=== PATIENT | male | born 1970 | race Caucasian/White ===

== ENCOUNTER 2017-11-20 22:26 | Inpatient (IN) ==
--- NOTE | 2017-11-20 22:41 | Emergency Department Note ---
Disposition Clinical Impression: Acute dyspnea, Elevated d-dimer Atrial flutter Qualifiers: Atrial flutter type: unspecified Qualified Code(s): I48.92 - Unspecified atrial flutter Anemia Qualifiers: Anemia type: unspecified type Qualified Code(s): D64.9 - Anemia, unspecified Disposition: Admitted As Inpatient Condition: Undetermined Time of Disposition: 00:57 SOB HPI - General Chief Complaint: ED Shortness of Breath/Dyspnea Stated Complaint: difficulty breathing Time Seen by Provider: 11/20/17 22:37 Source: patient, EMS Mode of arrival: EMS Limitations: no limitations Nursing Notes Reviewed: Yes Vital Signs Reviewed: Yes - History of Present Illness 47-year-old male with no previous medical history arrives to the emergency department with complaint of dyspnea. He also complaining of bilateral lower extremity and abdominal swelling over the course of the past 2 weeks. He states that the shortness of breath started prior to the swelling. He denies any chest pain, abdominal pain, fevers, chills, sputum production. Denies any other complaints at this time. Upon arrival to his house, EMS noted the patient to be 96% on room air was administered DuoNeb. EMS stated that he was 96% on 3 L nasal cannula. He denies any other complaints at this time. He is not tachypneic. He denies any other complaints at this time including hemoptysis, unilateral leg swelling, history of DVT or PE, recent surgeries. The patient is fairly immobile at home. - Related Data Allergies Allergy/AdvReac Type Severity Reaction Status Date / Time grape Allergy Hives Verified 11/20/17 22:34 All systems ED: reviewed and negative except as stated. Constitutional: Denies: fever, chills ENT ED: Denies: congestion Cardiovascular: Denies: chest pain Respiratory: Reports: cough, dyspnea. Denies: wheezes, sputum production Gastrointestinal: Denies: abdominal pain, nausea, vomiting, diarrhea, constipation Musculoskeletal: Denies: back pain Integumentary: Denies: rash Neurological: Denies: headache Past Medical History - Past Medical History Attestation: Yes The following information was validated with the patient. Source: patient Medical history: Reports: no medical history Surgical history: Reports: non-contributory Psychiatric history: Reports: no psych history - Social History Smoking Status: Never smoker Smokeless Tobacco Status: No Alcohol use: Reports: none Drug use: Reports: none Physical Exam - General Limitations: no limitations General appearance: alert, in no apparent distress - Head Head exam: atraumatic, normocephalic, normal inspection - Eye Eye exam: Present: normal appearance, PERRL, EOMI - ENT ENT exam: normal exam, normal oropharynx, mucous membranes moist - Neck Neck exam: Present: normal inspection, full ROM, trachea midline - Chest Chest inspection: Present: normal inspection, symmetric chest wall rise - Respiratory Respiratory exam: Present: normal lung sounds bilaterally - Cardiovascular Cardiovascular exam: Present: normal rhythm, tachycardia, normal heart sounds - Abdominal Exam Abdominal exam: Present: soft, Non-Tender, distention, other (Large pannus, No erythema or pain on palpation.). Absent: tenderness, guarding, rebound, rigidity - Male exam: Absent: erythema - Extremities Exam Extremities exam: Present: full ROM, pedal edema (2+ pitting). Absent: tenderness - Neurological Exam Neurological exam: Present: alert, oriented X3 - Skin Skin exam: Present: warm, dry, intact, normal color Course - Reevaluation(s) Reevaluation #1: Workup in the emergency department demonstrates findings consistent with CHF. In addition the patient does have an elevated d-dimer but given the patient's large size, we are unable to accommodate the patient for a CT scan here in our emergency department. [facility] contacted [facility] well as [facility] who are also unable to accompany the patient's size for a CT scan. We will administer 1 dose of Lovenox here in the emergency department. The patient will be converted with Adenocard as his EKG looks consistent with SVT. The patient was made aware and agrees to plan. He gives a verbal understanding and agreement for cardioversion here in the emergency department. The patient will be placed on a monitor with attending physician and nursing staff in the room. Time: 23:59 Reevaluation #2: Patient was administered initially a dose of 6 mg of Adenocard which was unsuccessful. The patient was administered a second dose of 12 mg of at dinner car which did slow the heart rate for a brief second which revealed atrial flutter. The patient was started on a Cardizem drip. The patient was also administered a 200 unit dose of Lovenox. We will admit the patient to the hospital at this time. Time: 00:44 Vital Signs Temperature 98.1 F 11/20/17 22:34 Pulse Rate 154 11/20/17 22:34 Respiratory Rate 22 11/20/17 22:34 Blood Pressure 112/73 11/20/17 22:34 O2 Sat by Pulse Oximetry 96 11/20/17 22:34 Temperature 98.1 F 11/20/17 22:34 Pulse Rate 153 11/20/17 23:35 Respiratory Rate 22 11/20/17 23:35 Blood Pressure 140/110 11/20/17 23:35 O2 Sat by Pulse Oximetry 96 11/20/17 23:35 Oxygen Delivery Oxygen Delivery Room Air Shortness of Breath/Dyspnea - MDM Narrative Medical decision making narrative: Workup in the emergency Department imaging findings consistent with mild CHF, mild troponin. In addition the patient was found to be in atrial flutter after the patient's heart rate was slowed slightly after Adenocard. We will admit the patient to the hospital at this time. He was also administered Lovenox as the patient is unable to receive a CTA of the chest here, at [place] or [facility]. The patient was accepted by Dr. Samayoa. - Lab Data Lab results reviewed: Yes I reviewed the patient's lab results. Result diagrams: 11/20/17 22:57 11/20/17 22:57 Lab Results 11/20/17 11/20/17 11/20/17 Range/Units 22:57 22:57 22:57 WBC 11.0 (4.3-11.1) K/mcL RBC 4.56 (4.19-5.50) M/mcL Hgb 8.6 L (12.9-16.9) g/dL Hct 31.6 L (37.5-50.1) % MCV 69.3 L (83.0-100.0) fL MCH 18.9 L (28.0-33.3) pg MCHC 27.2 L (31.6-35.5) g/dL RDW 20.4 H (11.5-14.5) % Plt Count 337 (140-400) K/mcL MPV 9.3 L (9.4-12.4) fL Immature Gran % 0.8 (0-4) % Seg Neutrophils % 74.9 % Lymphocytes % 11.4 % Monocytes % 9.1 % Eosinophils % 3.4 % Basophils % 0.4 % Neutrophils # 8.2 (1.6-8.9) K/mcL Lymphocytes # 1.3 (0.6-4.6) K/mcL Monocytes # 1.0 (0.0-1.3) K/mcL Eosinophils # 0.4 (0.0-0.6) K/mcL Basophils # 0.0 (0.0-0.2) K/mcL Nucleated RBCs/100 WBC 0.5 H (0) /100 WBC Platelet Estimate Normal (Normal) Hypochromasia Present A (Not Present) Anisocytosis 1+ A (Not Present) Microcytosis Present A (Not Present) D-Dimer 1153 H (0-500) ng/mLFEU Sodium 136 (136-145) mEq/L Potassium 3.5 (3.5-5.1) mEq/L Chloride 103 (98-107) mEq/L Carbon Dioxide 26 (23-29) mEq/L BUN 12 (6-20) mg/dL Creatinine 0.88 (0.70-1.30) mg/dL Est GFR ( Amer) > 60 (> 60) Est GFR (Non-Af Amer) > 60 (> 60) BUN/Creatinine Ratio 14 (6-26) Glucose 130 H (70-105) mg/dL Calculated Osmolality 284 (280-300) Calcium 8.3 L (8.6-10.3) mg/dL Troponin I 0.05 H* (< 0.04) ng/mL B-Natriuretic Peptide (Less than 100) pg/mL 11/20/17 Range/Units 22:57 WBC (4.3-11.1) K/mcL RBC (4.19-5.50) M/mcL Hgb (12.9-16.9) g/dL Hct (37.5-50.1) % MCV (83.0-100.0) fL MCH (28.0-33.3) pg MCHC (31.6-35.5) g/dL RDW (11.5-14.5) % Plt Count (140-400) K/mcL MPV (9.4-12.4) fL Immature Gran % (0-4) % Seg Neutrophils % % Lymphocytes % % Monocytes % % Eosinophils % % Basophils % % Neutrophils # (1.6-8.9) K/mcL Lymphocytes # (0.6-4.6) K/mcL Monocytes # (0.0-1.3) K/mcL Eosinophils # (0.0-0.6) K/mcL Basophils # (0.0-0.2) K/mcL Nucleated RBCs/100 WBC (0) /100 WBC Platelet Estimate (Normal) Hypochromasia (Not Present) Anisocytosis (Not Present) Microcytosis (Not Present) D-Dimer (0-500) ng/mLFEU Sodium (136-145) mEq/L Potassium (3.5-5.1) mEq/L Chloride (98-107) mEq/L Carbon Dioxide (23-29) mEq/L BUN (6-20) mg/dL Creatinine (0.70-1.30) mg/dL Est GFR ( Amer) (> 60) Est GFR (Non-Af Amer) (> 60) BUN/Creatinine Ratio (6-26) Glucose (70-105) mg/dL Calculated Osmolality (280-300) Calcium (8.6-10.3) mg/dL Troponin I (< 0.04) ng/mL B-Natriuretic Peptide 168 H (Less than 100) pg/mL - Radiology Data Radiology results reviewed: Yes I reviewed the patient's radiology results. Chest X-Ray 11/20/17 22:38 IMPRESSION: Constellation of findings is most suggestive of CHF. D/ / Hanna Chavis MD / Hanna Chavis MD Interpreting Provider: Hanna Chavis MD - EKG Data EKG attestation: Yes I reviewed and interpreted this EKG. EKG results narrative: Heart rate 154 beats for minute. Sinus tachycardia. No ST elevation or ST depression noted. There are with P waves present but difficult to assess completely due to rate.
[2017-11-20 23:07] LABS: Mean Corpuscular Volume 69.3 fL (83.0-100.0); Nucleated Red Blood Cells 0.5 /100 WBC (0)
[2017-11-20 23:09] LABS: Basophils % 0.4 %; Eosinophils # 0.4 K/mcL (0.0-0.6); Eosinophils % 3.4 %; Hematocrit 31.6 % (37.5-50.1); Hemoglobin 8.6 g/dL (12.9-16.9); Immature Granulocytes % 0.8 % (0-4); Lymphocytes # 1.3 K/mcL (0.6-4.6); Lymphocytes % 11.4 %; Mean Corpuscular HGB Conc 27.2 g/dL (31.6-35.5); Mean Corpuscular Hemoglobin 18.9 pg (28.0-33.3); Mean Platelet Volume 9.3 fL (9.4-12.4); Monocytes % 9.1 %; Neutrophils # 8.2 K/mcL (1.6-8.9); Platelet Count 337 K/mcL (140-400); Red Blood Count 4.56 M/mcL (4.19-5.50); Red Cell Distribution Width 20.4 % (11.5-14.5); Segmented Neutrophils % 74.9 %
[2017-11-20 23:23] LABS: Anisocytosis 1+ (Not Present); Hypochromasia Present (Not Present); Microcytosis Present (Not Present); Platelet Estimate Normal (Normal)
[2017-11-20 23:28] LABS: BUN/Creatinine Ratio 14 (6-26); Blood Urea Nitrogen 12 mg/dL (6-20); Calcium 8.3 mg/dL (8.6-10.3); Carbon Dioxide 26 mEq/L (23-29); Chloride 103 mEq/L (98-107); Glucose 130 mg/dL (70-105); Osmolality,Calculated 284 (280-300); Potassium 3.5 mEq/L (3.5-5.1); Sodium 136 mEq/L (136-145); eGFR For African Americans > 60 (> 60); eGFR For Non-African Americans > 60 (> 60)
[2017-11-20 23:32] LABS: Troponin I 0.05 ng/mL (< 0.04)
[2017-11-20] MEDS ORDERED: *HR* Metoprolol 5 MG/5 ML VIAL IVP ONE (23:46)
[2017-11-20] MEDS ORDERED: *HR* Adenosine 6 MG/2 ML VIAL IVP ONE (23:57)
[2017-11-21] MEDS ORDERED: 0.9 % Sodium Chloride 500 ML ONE (00:04)
[2017-11-21] MEDS ORDERED: *HR* Adenosine 6 MG/2 ML VIAL IVP ONE (00:40)
[2017-11-21] MEDS ORDERED: *HR* Enoxaparin 100 MG/ML SYRINGE SQ STA (00:41)
--- NOTE | 2017-11-21 01:47 | Emergency Department Note ---
Disposition Clinical Impression: Acute dyspnea, Elevated d-dimer Atrial flutter Qualifiers: Atrial flutter type: unspecified Qualified Code(s): I48.92 - Unspecified atrial flutter Disposition: Admitted As Inpatient Condition: Undetermined General Adult HPI - General Chief complaint: ED Shortness of Breath/Dyspnea Stated complaint: difficulty breathing Time Seen by Provider: 11/20/17 22:37 Source: patient, EMS Mode of arrival: EMS Limitations: no limitations Nursing Notes Reviewed: Yes Vital Signs Reviewed: Yes - History of Present Illness Pain Scale: 0 - Related Data Allergies Allergy/AdvReac Type Severity Reaction Status Date / Time grape Allergy Hives Verified 11/20/17 22:34 Constitutional: Denies: fever, chills ENT ED: Denies: congestion Cardiovascular: Denies: chest pain Respiratory: Reports: cough, dyspnea. Denies: wheezes, sputum production Gastrointestinal: Denies: abdominal pain, nausea, vomiting, diarrhea, constipation Musculoskeletal: Denies: back pain Integumentary: Denies: rash Neurological: Denies: headache Past Medical History - Past Medical History Medical history: Reports: no medical history Surgical history: Reports: non-contributory Psychiatric history: Reports: no psych history - Social History Smoking Status: Never smoker Smokeless Tobacco Status: No Alcohol use: Reports: none Drug use: Reports: none Physical Exam - General Limitations: no limitations General appearance: alert, in no apparent distress Course Vital Signs Temperature 98.1 F 11/20/17 22:34 Pulse Rate 154 11/20/17 22:34 Respiratory Rate 22 11/20/17 22:34 Blood Pressure 112/73 11/20/17 22:34 O2 Sat by Pulse Oximetry 96 11/20/17 22:34 Temperature 98.1 F 11/20/17 22:34 Pulse Rate 153 11/20/17 23:35 Respiratory Rate 22 11/20/17 23:35 Blood Pressure 140/110 11/20/17 23:35 O2 Sat by Pulse Oximetry 96 11/20/17 23:35 Oxygen Delivery Oxygen Delivery Room Air Medical Decision Making - Lab Data Result diagrams: 11/20/17 22:57 11/20/17 22:57 Lab Results 11/20/17 11/20/17 11/20/17 Range/Units 22:57 22:57 22:57 WBC 11.0 (4.3-11.1) K/mcL RBC 4.56 (4.19-5.50) M/mcL Hgb 8.6 L (12.9-16.9) g/dL Hct 31.6 L (37.5-50.1) % MCV 69.3 L (83.0-100.0) fL MCH 18.9 L (28.0-33.3) pg MCHC 27.2 L (31.6-35.5) g/dL RDW 20.4 H (11.5-14.5) % Plt Count 337 (140-400) K/mcL MPV 9.3 L (9.4-12.4) fL Immature Gran % 0.8 (0-4) % Seg Neutrophils % 74.9 % Lymphocytes % 11.4 % Monocytes % 9.1 % Eosinophils % 3.4 % Basophils % 0.4 % Neutrophils # 8.2 (1.6-8.9) K/mcL Lymphocytes # 1.3 (0.6-4.6) K/mcL Monocytes # 1.0 (0.0-1.3) K/mcL Eosinophils # 0.4 (0.0-0.6) K/mcL Basophils # 0.0 (0.0-0.2) K/mcL Nucleated RBCs/100 WBC 0.5 H (0) /100 WBC Platelet Estimate Normal (Normal) Hypochromasia Present A (Not Present) Anisocytosis 1+ A (Not Present) Microcytosis Present A (Not Present) D-Dimer 1153 H (0-500) ng/mLFEU Sodium 136 (136-145) mEq/L Potassium 3.5 (3.5-5.1) mEq/L Chloride 103 (98-107) mEq/L Carbon Dioxide 26 (23-29) mEq/L BUN 12 (6-20) mg/dL Creatinine 0.88 (0.70-1.30) mg/dL Est GFR ( Amer) > 60 (> 60) Est GFR (Non-Af Amer) > 60 (> 60) BUN/Creatinine Ratio 14 (6-26) Glucose 130 H (70-105) mg/dL Calculated Osmolality 284 (280-300) Calcium 8.3 L (8.6-10.3) mg/dL Troponin I 0.05 H* (< 0.04) ng/mL B-Natriuretic Peptide (Less than 100) pg/mL 11/20/17 Range/Units 22:57 WBC (4.3-11.1) K/mcL RBC (4.19-5.50) M/mcL Hgb (12.9-16.9) g/dL Hct (37.5-50.1) % MCV (83.0-100.0) fL MCH (28.0-33.3) pg MCHC (31.6-35.5) g/dL RDW (11.5-14.5) % Plt Count (140-400) K/mcL MPV (9.4-12.4) fL Immature Gran % (0-4) % Seg Neutrophils % % Lymphocytes % % Monocytes % % Eosinophils % % Basophils % % Neutrophils # (1.6-8.9) K/mcL Lymphocytes # (0.6-4.6) K/mcL Monocytes # (0.0-1.3) K/mcL Eosinophils # (0.0-0.6) K/mcL Basophils # (0.0-0.2) K/mcL Nucleated RBCs/100 WBC (0) /100 WBC Platelet Estimate (Normal) Hypochromasia (Not Present) Anisocytosis (Not Present) Microcytosis (Not Present) D-Dimer (0-500) ng/mLFEU Sodium (136-145) mEq/L Potassium (3.5-5.1) mEq/L Chloride (98-107) mEq/L Carbon Dioxide (23-29) mEq/L BUN (6-20) mg/dL Creatinine (0.70-1.30) mg/dL Est GFR ( Amer) (> 60) Est GFR (Non-Af Amer) (> 60) BUN/Creatinine Ratio (6-26) Glucose (70-105) mg/dL Calculated Osmolality (280-300) Calcium (8.6-10.3) mg/dL Troponin I (< 0.04) ng/mL B-Natriuretic Peptide 168 H (Less than 100) pg/mL Critical Care Time Critical Care Time: Yes Total Critical Care Time: 45 Attestation: Critical care performed: Time is exclusive of separately billable procedures. Time includes: direct patient care, patient reassessment, coordination of patient care, interpretation of data (laboratory data, radiology data, and respiratory data), review of patient's medical records, medical consultation and documentation of patient care. Procedures included in critical care time: Procedures excluded from critical care time: Attestation Statement - Attestation Attestation: I, Anoop Butler MD, personally evaluated this patient and discussed their management with the resident physician. I reviewed the resident's note and agree with the documented findings, medical decision making, and plan of care. 47-year-old male presents to the emergency department by ambulance with a complaint of increasing shortness of breath over the past 4-5 weeks but especially over the past 2 weeks. Also complains of increased swelling. No cough or fever. Patient is not on home oxygen and denies any prior history of breathing problems. Patient does have morbid obesity and weighs 580 pounds. He denies any chest pain. No cough or fever. No prior history of CHF. On examination patient is a morbidly obese male in no acute distress. He is alert and oriented 3. There is no cyanosis or diaphoresis. Breath sounds are equal bilaterally with no rales or wheezes noted. Heart is tachycardic and regular. Abdomen is soft and nontender with present bowel sounds. One plus Pitting edema of lower extremities bilaterally. EKG shows a narrow complex tachycardia with a ventricular rate of 154. Low voltage QRS in precordial leads. Chest x-ray suggestive of CHF. Labs reviewed. Hemoglobin 8.6. D-dimer elevated at 1153. Troponin 0.05. BNP 168. Patient received IV adenosine 6 mg followed by 12 mg. With the 12 mg dose there was brief slowing of a few beats which revealed what appeared to be atrial flutter. Patient was then given a Cardizem bolus and started on Cardizem infusion. Patient was also given Lovenox injection as his body habitus is too large to obtain a CTA of his lungs. We did consult [facility] and also [facility] in [place] and he is also too large for their scanner's. At this point the best course would be to him with Lovenox and obtain a VQ scan as soon as possible. The hospitalist, Dr. Samayoa, was consulted and accepted admission of the patient.
[2017-11-21] MEDS ORDERED: Naloxone 0.4 MG/ML INJ IVP PRN (02:37)
[2017-11-21] MEDS ORDERED: Acetaminophen 325 MG TABLET PO PRN (02:37)
[2017-11-21] MEDS ORDERED: 0.9 % Sodium Chloride 1,000 ML IVC SCH (02:45)
--- NOTE | 2017-11-21 02:52 | Internal Med History&Physical ---
Date of Encounter: 11/21/17 Time of Encounter: 02:00 Internal Medicine - H&P: HPI Chief complaint: Shortness of breath Admitted From: Home Plans for Post Hospital Care: Home History of present illness: Mr. Cornelius is a 47 year old male presented to ER for shortness of breath for 5 weeks. Patient has no significant past medical history, except morbid obese. Patient said he feels shortness of breath since 5 weeks ago. No chest pain. Patient has no fever. He has a mild dry cough. Patient denies nausea, diaphoresis. Patient denies a recent travel, immobilization, or surgery. In the emergency room, chest x-ray shows suggestive CHF. EKG shows A flutter with a heart rate 153. Patient was given metoprolol, Cardizem, adenosine iv in ER. Heart rate cannot be controlled by these medications. Patient was placed on Cardizem drip and admitted for further management. Past Med Surg Social Fam HX - Past Medical History Medical history: no medical history Psychiatric history: no psych history - Past Surgical History Surgical History: non-contributory - Social History Smoking Status: Never smoker Smokeless Tobacco Status: No Alcohol use: none Drug use: none - Family History Mother History Unknown: Yes Internal Medicine - H&P: Meds No Known Home Drugs 11/21/17 [History] 3 Allergy/AdvReac Type Severity Reaction Status Date / Time grape Allergy Hives Verified 11/20/17 22:34 All Systems PM: A 10-system review of systems was performed and is negative for pertinent findings except as documented above in the HPI. - Constitutional Vitals: Temp Pulse Resp BP Pulse Ox 98.1 F 153 22 166/94 96 11/20/17 22:34 11/20/17 23:35 11/21/17 02:05 11/21/17 02:05 11/20/17 23:35 General appearance: Present: mild distress, A&O X 3, morbidly obese, answers questions appropriately - Head Head exam: Present: atraumatic, normocephalic - Eye Eye exam: Present: PERRL, conjuntiva pink, sclera anicteric Pupils: Present: PERRL - Neck Neck exam general surgery: Present: supple, trachea midline. Absent: lymphadenopathy - Respiratory Respiratory exam: Present: CTAB. Absent: accessory muscle use, rales, rhonchi, wheezes - Cardiovascular Cardiovascular exam: Present: RRR, +S1, +S2, tachycardia. Absent: diastolic murmur, gallop, rubs, systolic murmur - GI/Abdominal GI/Abdominal exam: Present: normal bowel sounds, soft, no peritoneal signs. Absent: distended, tenderness - Extremities Exam Extremities exam: Present: pedal edema (Mild pedal edema bilaterally), warm, radial pulses palpable and symmetrical. Absent: calf tenderness, cyanotic - Neurological Exam Neurological exam: Present: CN II-XII intact, oriented X3, no focal deficits. Absent: pronater drift, facial droop, speech deficit - Skin Skin exam: Present: dry, intact Internal Med - H&P Results - Labs CBC & Chem 7: 11/20/17 22:57 11/20/17 22:57 - Assessment and plan (1) Elevated troponin Current Visit: Yes Status: Acute Assessment and plan: Patient has a mild elevated troponin on the condition of heart rate 153. Most likely demand ischemia. However, we will check 3 sets of troponin to rule out ACS. (2) CHF (congestive heart failure) Current Visit: Yes Status: Acute Assessment and plan: Chest x-ray shows suggestive CHF. Patient has mild elevated BNP, however, he is morbid obese, the BNP level is possibly falsely low. - We will check Echocardiogram in AM - Consult cardiology for further management. Qualifiers: Heart failure type: unspecified Heart failure chronicity: unspecified Qualified Code(s): I50.9 - Heart failure, unspecified (3) DVT prophylaxis Current Visit: Yes Status: Acute Assessment and plan: Patient has received 200mg Lovenox at 1:16am on 11/21/17. He may need long-term anticoagulation because of A flutter, will follow cardiology further recommendation. (4) Atrial flutter Current Visit: Yes Status: Acute Assessment and plan: Patient complaint of shortness of breath. EKG shows atrial flutter with heart rate 153. Patient has symptoms for 5 weeks. No history of previous atrial flutter or A. fib. - Continue cardiac monitoring - Continue Cardizem drip. - Lovenox 200mg sc was given in emergency room at 1:16am - Consul cardiology for further management. Qualifiers: Atrial flutter type: unspecified Qualified Code(s): I48.92 - Unspecified atrial flutter (5) Elevated d-dimer Current Visit: Yes Status: Acute Assessment and plan: Patient has elevated d-dimer. He denies chest pain. He has no desaturation. Patient cannot fit the CT for CTA. - We will check bilateral venous Doppler to rule out DVT - Place order of VQ scan, but suspect if patient can finish the test. - We will order echocardiogram to rule out right ventricular strain - Patient was given 1 dose of 200mg Lovenox already in ER (6) Anemia Current Visit: Yes Status: Acute Assessment and plan: Etiology is undetermined. Patient has no previous hemoglobin level available to compare. Place patient on anemia workup. Qualifiers: Anemia type: unspecified type Qualified Code(s): D64.9 - Anemia, unspecified (7) Morbid obesity with BMI of 70 and over, adult Current Visit: Yes Status: Acute Assessment and plan: Patient needs to be referred to bariatric surgery for BW loss, after stabilized from A. flutter RVR. - Time Spent With Patient Total time spent is greater than 50% in coordination of care (as documented) at patient's floor/unit and/or counseling patient: 40 minutes Greater than 35 minutes
[2017-11-21 04:28] LABS: Mean Platelet Volume 9.1 fL (9.4-12.4)
[2017-11-21 04:30] LABS: Basophils # 0.1 K/mcL (0.0-0.2); Basophils % 0.6 %; Eosinophils # 0.3 K/mcL (0.0-0.6); Eosinophils % 2.2 %; Hematocrit 32.2 % (37.5-50.1); Hemoglobin 8.8 g/dL (12.9-16.9); Immature Granulocytes % 0.7 % (0-4); Lymphocytes # 1.5 K/mcL (0.6-4.6); Lymphocytes % 12.2 %; Mean Corpuscular HGB Conc 27.3 g/dL (31.6-35.5); Mean Corpuscular Hemoglobin 18.8 pg (28.0-33.3); Mean Corpuscular Volume 68.8 fL (83.0-100.0); Monocytes % 8.7 %; Neutrophils # 9.1 K/mcL (1.6-8.9); Nucleated Red Blood Cells 0.5 /100 WBC (0); Platelet Count 343 K/mcL (140-400); Red Blood Count 4.68 M/mcL (4.19-5.50); Red Cell Distribution Width 20.6 % (11.5-14.5); Segmented Neutrophils % 75.6 %
[2017-11-21 04:47] LABS: Hypochromasia Present (Not Present); Microcytosis Present (Not Present); Platelet Estimate Normal (Normal)
[2017-11-21 04:48] LABS: Anisocytosis 1+ (Not Present); Polychromasia 1+ (Not Present)
[2017-11-21 04:53] LABS: % Iron Saturation 4 % (20-55); Ferritin 18 ng/ml (20-250); Iron 18 mcg/dL (65-175); Transferrin 320 mg/dL (203-362)
[2017-11-21 04:55] LABS: Alanine Aminotransferase 17 Units/L (7-52); Albumin 3.4 g/dL (3.5-5.7); Albumin/Globulin Ratio 1.2 (1.1-2.2); Alkaline Phosphatase 111 Units/L (34-104); Aspartate Amino Transferase 21 Units/L (13-39); BUN/Creatinine Ratio 15 (6-26); Bilirubin,Total 0.9 mg/dL (0.3-1.0); Blood Urea Nitrogen 12 mg/dL (6-20); Calcium 8.4 mg/dL (8.6-10.3); Carbon Dioxide 24 mEq/L (23-29); Chloride 104 mEq/L (98-107); Chol/HDL Ratio 3.6 (0-4.9); Cholesterol 105 mg/dL (< 200); Globulin 2.9 g/dL (2.4-3.5); Glucose 122 mg/dL (70-105); HDL Cholesterol 29 mg/dL (40-59); LDL Cholesterol,Calculated 64 mg/dL (0-99); Magnesium 1.8 mg/dL (1.6-2.6); Osmolality,Calculated 283 (280-300); Potassium 3.5 mEq/L (3.5-5.1); Sodium 136 mEq/L (136-145); Total Protein 6.3 g/dL (6.4-8.9); Triglycerides 61 mg/dL (< 150); eGFR For African Americans > 60 (> 60); eGFR For Non-African Americans > 60 (> 60)
[2017-11-21 05:03] LABS: Troponin I 0.04 ng/mL (< 0.04)
[2017-11-21 05:06] LABS: Thyroid Stimulating Hormone 0.968 mcIU/mL (0.340-5.600)
[2017-11-21 05:14] LABS: Folate 14.1 ng/mL (3.0-16.0)
--- NOTE | 2017-11-21 08:09 | Internal Med Progress Note ---
<David Lam - Last Filed: 11/21/17 08:01> Date of Encounter: 11/21/17 Time of Encounter: 08:01 - Assessment and plan (1) CHF (congestive heart failure) Current Visit: Yes Status: Suspected Assessment and plan: Morbidly obese patient with poor medical inventory admitted after 5 weeks of progressive shortness of air and lower extremity edema. CXR done in ED demonstrates cardiomegaly, vascular congestion, and pulmonary edema suggestive of CHF. No known history of CHF. BNP modestly elevated. ED was unable to check CTA for pulmonary embolus as patient is of a habitus preclusive to use of our scanner; ED did contact [facility] who have similar limitation toward scanning patient. Associated shortness of breath maybe multifactorial to include OIH as well as aforementioned. Concurrent diagnoses include morbid obesity, acute atrial flutter with RVR, and suspected PE (unable to CTA due to habitus) - Cardiology consulted and called by night hospitalist - serial troponins mildly elevated and adynamic thus far - lipid panel was unremarkable except for mildly low HDL - echocardiogram pending - B/L LE VD-U/S ordered and pending - Echocardiogram pending; no prior for comparison - patient given single-dose of Lovenox in the ED preferred for presumptive pulmonary embolus - fluid restriction diet; will start patient on Lasix and strictly monitor I/O - Alejandre catheter for strict monitoring of urinary output Due to concern of VTE, pt may need to be transferred to another facility with access to scanner that can accommodate him. Starting heparin gtt for suspected PE. Qualifiers: Heart failure type: unspecified Heart failure chronicity: unspecified Qualified Code(s): I50.9 - Heart failure, unspecified (2) Atrial flutter Current Visit: Yes Status: Acute Assessment and plan: Continues to be tachycardic into the 150s at rest with no obvious distress - continue cardiac monitoring - adjusted Cardizem titration orders to include goal pulse rate of 90 - awaiting any cardiology recommendations Qualifiers: Atrial flutter type: unspecified Qualified Code(s): I48.92 - Unspecified atrial flutter (3) Elevated d-dimer Current Visit: Yes Status: Acute Assessment and plan: Suspected PE, unable to evaluate at this facility; all plans as above. (4) Anemia Current Visit: Yes Status: Acute Assessment and plan: No medical records available for trending or comparison. No subjective signs of gastrointestinal bleeding. CBC QAM. Qualifiers: Anemia type: unspecified type Qualified Code(s): D64.9 - Anemia, unspecified (5) DVT prophylaxis Current Visit: Yes Status: Acute Assessment and plan: Patient received single-dose Lovenox will be started on heparin GTT. (6) Morbid obesity with BMI of 70 and over, adult Current Visit: Yes Status: Acute Assessment and plan: Patient needs to be referred to bariatric surgery for BW loss, after stabilized from [facility]. - Time Spent With Patient Total time spent is greater than 50% in coordination of care (as documented) at patient's floor/unit and/or counseling patient: - Subjective Interval history: Patient states feels okay this morning but becomes winded when he talks. Denies any chest pain. Has no sense of his heart racing. Discussed medical history with patient has no formerly diagnosed conditions. Does not routinely see any physicians for ongoing care. Takes no medications [id number]. Surgical history is equally unremarkable. No known drug allergies. - Constitutional Vitals: Temp Pulse Resp BP Pulse Ox 98.7 F 155 24 148/114 96 11/21/17 07:25 11/21/17 07:25 11/21/17 07:25 11/21/17 07:25 11/21/17 07:25 CONSTITUTIONAL: alert and no acute distress, answers questions appropriately, morbidly obese habitus HEAD: Normocephalic; atraumatic. EYES: PER, no scleral icterus, no drainage, no conjunctival injection NOSE: no supplementary oxygen being used at this time, no rhinorrhea Oropharynx: pink/moist RESP: speaks and interrupted sentences, lung sounds clear but diminished, unable to hear wheezes/rales/rhonchi CARD: difficult auscultation, unable to hear murmurs, rate and rhythm regular, tachycardic and to the 150s as palpated radial pulse ABD: morbid obesity limits exam, soft, nontender SKIN: normal appearance, no pallor/diaphoresis,mottling,jaundice,cyanosis EXT: Rad pulses 2+ and symmetrical; large LE habitus with 1-2+ pitting edema up to the mid-proximal carter PSYCH: appropriate mood/affect Internal Medicine: Result - Labs CBC & Chem 7: 11/21/17 04:14 11/21/17 04:14 Labs: Short CBC 11/21/17 Range/Units 04:14 WBC 12.0 H (4.3-11.1) K/mcL Hgb 8.8 L (12.9-16.9) g/dL Hct 32.2 L (37.5-50.1) % Plt Count 343 (140-400) K/mcL Neutrophils # 9.1 H (1.6-8.9) K/mcL BMP 11/21/17 04:14 Sodium 136 Potassium 3.5 Chloride 104 Carbon Dioxide 24 BUN 12 Creatinine 0.80 Glucose 122 H Calcium 8.4 L Cardiac Enzymes 11/21/17 Range/Units 04:14 Troponin I 0.04 H* (< 0.04) ng/mL Liver Function 11/21/17 Range/Units 04:14 Total Bilirubin 0.9 (0.3-1.0) mg/dL AST 21 (13-39) Units/L ALT 17 (7-52) Units/L Alkaline Phosphatase 111 H (34-104) Units/L Albumin 3.4 L (3.5-5.7) g/dL - ABG Interpretation ABG results: PT/INR, D-dimer D-Dimer 1153 ng/mLFEU (0-500) H 11/20/17 22:57 Consult Discharge Plan - Plan Referrals: NONE,PCP [Primary Care Provider] - <Betito Maloney H - Last Filed: 11/21/17 10:38> Date of Encounter: 11/21/17 - Assessment and plan (1) Atrial flutter Current Visit: Yes Status: Acute Qualifiers: Atrial flutter type: unspecified Qualified Code(s): I48.92 - Unspecified atrial flutter (2) Elevated d-dimer Current Visit: Yes Status: Acute (3) Anemia Current Visit: Yes Status: Acute Qualifiers: Anemia type: unspecified type Qualified Code(s): D64.9 - Anemia, unspecified (4) CHF (congestive heart failure) Current Visit: Yes Status: Suspected Qualifiers: Heart failure type: unspecified Heart failure chronicity: unspecified Qualified Code(s): I50.9 - Heart failure, unspecified (5) DVT prophylaxis Current Visit: Yes Status: Acute (6) Morbid obesity with BMI of 70 and over, adult Current Visit: Yes Status: Acute - Time Spent With Patient Total time spent is greater than 50% in coordination of care (as documented) at patient's floor/unit and/or counseling patient: - Constitutional Vitals: Temp Pulse Resp BP Pulse Ox 98.7 F 156 24 125/92 96 11/21/17 07:25 11/21/17 10:21 11/21/17 07:25 11/21/17 10:21 11/21/17 07:25 Internal Medicine: Result - Labs CBC & Chem 7: 11/21/17 09:44 11/21/17 04:14 Labs: Short CBC 11/21/17 11/21/17 Range/Units 04:14 09:44 WBC 12.0 H 11.9 H (4.3-11.1) K/mcL Hgb 8.8 L 9.2 L (12.9-16.9) g/dL Hct 32.2 L 33.5 L (37.5-50.1) % Plt Count 343 369 (140-400) K/mcL Neutrophils # 9.1 H (1.6-8.9) K/mcL BMP 11/21/17 04:14 Sodium 136 Potassium 3.5 Chloride 104 Carbon Dioxide 24 BUN 12 Creatinine 0.80 Glucose 122 H Calcium 8.4 L Cardiac Enzymes 11/21/17 11/21/17 Range/Units 04:14 09:44 Troponin I 0.04 H* 0.05 H* (< 0.04) ng/mL Liver Function 11/21/17 Range/Units 04:14 Total Bilirubin 0.9 (0.3-1.0) mg/dL AST 21 (13-39) Units/L ALT 17 (7-52) Units/L Alkaline Phosphatase 111 H (34-104) Units/L Albumin 3.4 L (3.5-5.7) g/dL - ABG Interpretation ABG results: PT/INR, D-dimer PT 14.4 Seconds (9.4-12.1) H 11/21/17 09:44 D-Dimer 1153 ng/mLFEU (0-500) H 11/20/17 22:57 - Attending Attestation Elevated D dimer (1153), possible PE start heparin drip acute CHF exacerbation systolic vs diastolic echo ordered lasix IV likely sinus tachycardia on cardizem drip, give additional cardizem IV and lopressor IV PRN Options explained to the patient, we won't be able to perform a CT scan here due to his BMI (96.6) He agreed to attempt to have him transferred either to [place] or [place] Anemia, possible iron deficiency, may order hemoccult, start omeprazole Morbid obesity I examined this patient and my medical decision-making was reviewed with the Resident Physician. I agree with the documented findings, disposition and treatment plan as described except to the extent set forth below. Betito Maloney
[2017-11-21] MEDS ORDERED: *HR* Heparin 5,000 UNIT/ML VIAL IVP ONE (08:37)
[2017-11-21] MEDS ORDERED: *HR* Heparin 5,000 UNIT/ML VIAL IVP PRN ×2 (08:37)
[2017-11-21 09:59] LABS: Hematocrit 33.5 % (37.5-50.1); Hemoglobin 9.2 g/dL (12.9-16.9); Immature Platelets 2.1 % (1.1-6.1); Mean Corpuscular HGB Conc 27.5 g/dL (31.6-35.5); Mean Corpuscular Hemoglobin 18.9 pg (28.0-33.3); Mean Corpuscular Volume 68.9 fL (83.0-100.0); Mean Platelet Volume 8.9 fL (9.4-12.4); Red Blood Count 4.86 M/mcL (4.19-5.50); Red Cell Distribution Width 20.3 % (11.5-14.5)
[2017-11-21 10:09] LABS: INR 1.3; Prothrombin Time 14.4 Seconds (9.4-12.1)
[2017-11-21 10:11] LABS: Activated Partial Thrombo Time 28.6 Seconds (26.0-36.0)
[2017-11-21] MEDS ORDERED: *HR* Metoprolol 5 MG/5 ML VIAL IVP SCH (10:30)
[2017-11-21 10:49] LABS: Estimated Average Glucose 186 mg/dl; Hemoglobin A1C 8.1 %
[2017-11-21] MEDS: Furosemide 40 MG/4 ML VIAL IVP SCH ×2 (11:24→20:58)
[2017-11-21] MEDS: Heparin 25,000 UNIT/500 ML D5W 25,000 UNIT/500 ML BAG IVC SCH ×2 (11:25→19:45)
--- NOTE | 2017-11-21 13:59 | Discharge Summary ---
<David Lam - Last Filed: 11/21/17 13:54> Orders not resulted at time of discharge: Pending orders 11/21/17 02:41 EV echocardiogram Routine 11/21/17 02:42 Venous Doppler [EV venous imaging LE BI] Routine 11/21/17 02:43 NM pul vent and perfuse [NM] Routine 11/21/17 10:36 Fecal Hemoccult [Occult Blood,Stool] [BF] Routine 11/21/17 17:25 PTT [Activated Partial Thrombo Time] [COAG] Timed Date of Encounter: 11/21/17 Time of Encounter: 08:01 - Discharge Diagnosis (1) CHF (congestive heart failure) Priority: Primary Status: Suspected Assessment and Plan: Morbidly obese patient with poor medical inventory admitted after 5 weeks of progressive shortness of air and lower extremity edema. CXR done in ED demonstrates cardiomegaly, vascular congestion, and pulmonary edema suggestive of CHF. No known history of CHF. BNP modestly elevated. ED was unable to check CTA for pulmonary embolus as patient is of a habitus preclusive to use of our scanner; ED did contact [facility] and [facility] who have similar limitation toward scanning patient. Associated shortness of breath maybe multifactorial to include OIH as well as aforementioned. Concurrent diagnoses include morbid obesity, acute atrial flutter with RVR, and suspected PE (unable to CTA due to habitus) - Cardiology consulted and called by night hospitalist - serial troponins mildly elevated and adynamic thus far - lipid panel was unremarkable except for mildly low HDL - echocardiogram pending - B/L LE VD-U/S ordered and pending - Echocardiogram pending; no prior for comparison - patient given single-dose of Lovenox in the ED preferred for presumptive pulmonary embolus - fluid restriction diet; will start patient on Lasix and strictly monitor I/O - Alejandre catheter for strict monitoring of urinary output Pending transfer to [facility] MICU per Dr. Ellison. Qualifiers: Heart failure type: unspecified Heart failure chronicity: unspecified Qualified Code(s): I50.9 - Heart failure, unspecified (2) Atrial flutter Priority: Primary Status: Suspected Assessment and Plan: Continues to be tachycardic into the 150s at rest with no obvious distress - EKG non-specific and unable to interpret adequately at his then present rate - repeat EKG when ryan-normal HR as able prior to transfer - all other plans as above Qualifiers: Atrial flutter type: unspecified Qualified Code(s): I48.92 - Unspecified atrial flutter (3) Elevated d-dimer Priority: Primary Status: Acute Assessment and Plan: Suspected PE, unable to evaluate at this facility; all plans as above. (4) Anemia Priority: Primary Status: Acute Assessment and Plan: No medical records available for trending or comparison. No subjective signs of gastrointestinal bleeding. CBC QAM. Qualifiers: Anemia type: unspecified type Qualified Code(s): D64.9 - Anemia, unspecified (5) Morbid obesity with BMI of 70 and over, adult Priority: Primary Status: Chronic Assessment and Plan: Patient needs to be referred to bariatric surgery for BW loss at some point. Hospital course: Mr. Cornelius is a 47 year old male with on elucidated medical history and BMI of 96.6 who is admitted by the emergency department for subacute shortness of breath and tachydysrhythmia. Admitted to medical floor with likely CHF, tachydysrhythmia, and possible pulmonary embolism. Patient does not have routine follow-up with any physicians and has no known medical conditions, no surgeries, and no medication allergies. HPI significant for 5 weeks of increasing shortness of breath and pedal edema. Found to be tachycardic in the ED with suspected atrial flutter. Emergency department attempted cardioversion with adenosine on 2 occasions which failed, and ultimately opted to placed patient on Cardizem drip. Chest x-ray performed in the ED demonstrated findings consistent with CHF exacerbation; had modestly elevated BNP at 168 and a dynamic troponin levels of 0.05, 0.04, and 0.05. Do tachycardia and shortness of breath, or some concern of PE, so D-dimer was run and found to be elevated. Unable to accommodate patient on our CT scanner, so patient was given initial dose of Lovenox in the emergency department and admitted to the medical floor. Started patient on heparin infusion for presumed pulmonary embolus. Despite Cardizem drip, patient's pulse rate persisted to be in the 150 range; did add additional push doses of Cardizem which have gotten patient's pulse rate down to the 100-130 range. Also started patient on 40 mg IV Lasix BID for volume overload. Cardiology was consulted on case, but is unable to make meaningful interpretation of clinical picture without further evaluation. Patient warrants transfer to a facility that is able to evaluate fully and accommodate is overall clinical picture, namely, CTA for PE given his habitus limitations. Other problems include newly diagnosed diabetes with an A1 C of 8.1%, anemia with hemoglobin of 8.6 g/dL on initial evaluation, and abnormal iron studies (see reports). Patient is accepted to the MICU at [facility] per Dr. Ellison who wishes to transport patient via air transport. Discharge discussed with: patient - Time Spent with Patient Total time spent providing and/or coordinating discharge services: - Discharge Medications Home Medications: No Known Home Drugs 11/21/17 [History] Allergies/Adverse Reactions: 3 Allergy/AdvReac Type Severity Reaction Status Date / Time grape Allergy Hives Verified 11/20/17 22:34 Date of admission: 11/21/17 02:37 Primary care physician: PCP NONE Consults: 11/21/17 02:44 Consult to Cardiology [CONS] Routine Comment: Consulting Provider: Cardiology Christel Reason for Consult: New A Flutter Call Completed: Yes 11/21/17 06:33 Consult to Disability Specialist [CONS] Routine Reason for SW Consult: Finacial concerns Discharging clinician: David Lam Anticipated date of discharge: 11/21/17 - Constitutional Vitals: Temp Pulse Resp BP Pulse Ox 98.9 F 130 20 132/89 97 11/21/17 11:25 11/21/17 11:25 11/21/17 11:25 11/21/17 11:25 11/21/17 11:25 CONSTITUTIONAL: alert and no acute distress, answers questions appropriately, morbidly obese habitus HEAD: Normocephalic; atraumatic. EYES: PER, no scleral icterus, no drainage, no conjunctival injection NOSE: no supplementary oxygen being used at this time, no rhinorrhea Oropharynx: pink/moist RESP: speaks and interrupted sentences, lung sounds clear but diminished, unable to hear wheezes/rales/rhonchi CARD: difficult auscultation, unable to hear murmurs, rate and rhythm regular, tachycardic and to the 150s as palpated radial pulse ABD: morbid obesity limits exam, soft, nontender SKIN: normal appearance, no pallor/diaphoresis,mottling,jaundice,cyanosis EXT: Rad pulses 2+ and symmetrical; large LE habitus with 1-2+ pitting edema up to the mid-proximal carter PSYCH: appropriate mood/affect - Patient Status Disposition: Transfer Short-Term Hosp Condition: Undetermined Functional capacity at discharge: bed bound Overall status at discharge: patient is not back to baseline - Discharge Instructions Follow Up With: NONE,PCP [Primary Care Provider] - Additional Instructions: Continue Cardizem and heparin infusions to transport. Continue all other PRN medications. Dose Lasix per prescription per interval if needed on transport. - Diet and Activity Diet: low salt diet <Betito Maloney H - Last Filed: 11/21/17 14:28> Orders not resulted at time of discharge: Pending orders 11/21/17 02:41 EV echocardiogram Routine 11/21/17 02:42 Venous Doppler [EV venous imaging LE BI] Routine 11/21/17 02:43 NM pul vent and perfuse [NM] Routine 11/21/17 10:36 Fecal Hemoccult [Occult Blood,Stool] [BF] Routine 11/21/17 17:25 PTT [Activated Partial Thrombo Time] [COAG] Timed Date of Encounter: 11/21/17 - Discharge Diagnosis (1) Atrial flutter Status: Suspected Qualifiers: Atrial flutter type: unspecified Qualified Code(s): I48.92 - Unspecified atrial flutter (2) Elevated d-dimer Status: Acute (3) Anemia Status: Acute Qualifiers: Anemia type: unspecified type Qualified Code(s): D64.9 - Anemia, unspecified (4) CHF (congestive heart failure) Status: Suspected Qualifiers: Heart failure type: unspecified Heart failure chronicity: unspecified Qualified Code(s): I50.9 - Heart failure, unspecified (5) Morbid obesity with BMI of 70 and over, adult Status: Chronic Hospital course: Mr. Cornelius is a 47 year old male - Time Spent with Patient Total time spent providing and/or coordinating discharge services: Date of admission: 11/21/17 02:37 Primary care physician: PCP NONE Consults: 11/21/17 02:44 Consult to Cardiology [CONS] Routine Comment: Consulting Provider: Cardiology Christel Reason for Consult: New A Flutter Call Completed: Yes 11/21/17 06:33 Consult to Disability Specialist [CONS] Routine Reason for SW Consult: Finacial concerns - Constitutional Vitals: Temp Pulse Resp BP Pulse Ox 98.9 F 130 20 132/89 97 11/21/17 11:25 11/21/17 11:25 11/21/17 11:25 11/21/17 11:25 11/21/17 11:25 - Attending Attestation Elevated D dimer (1153), possible PE Continue heparin drip acute CHF exacerbation systolic vs diastolic Echocardiogram not done due to transfer lasix likely sinus tachycardia on cardizem drip, give additional cardizem IV and lopressor IV PRN Options explained to the patient, we won't be able to perform a CT scan here due to his BMI (96.6) Transfer to [facility] Anemia, possible iron deficiency, may order hemoccult, start omeprazole Morbid obesity Time spent 40 minutes I examined this patient and my medical decision-making was reviewed with the Resident Physician. I agree with the documented findings, disposition and treatment plan as described except to the extent set forth below. Betito Maloney
[2017-11-21 18:10] LABS: Activated Partial Thrombo Time 171.1 Seconds (26.0-36.0)
[2017-11-21 18:26] LABS: Heparin anti-factor XA UFH 1.22 IU/mL (0.30-0.70)
[2017-11-21 22:03] VITALS: BP 119/80
--- NOTE | 2017-11-22 16:39 | Electrocardiograph Report ---
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
--- NOTE | 2017-11-22 18:54 | Electrocardiograph Report ---
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
== END 2017-11-21 22:40 | disposition short-term general hospital (02) | DRG 291 ==
LOC: 2NENU 22:26 → EMEROO 22:26 → 2NENU 11-21 02:33 → SUATTDRO 11-21 02:37
PROVIDERS: ADMIT Internal Medicine; ATTEND Internal Medicine

== ENCOUNTER 2019-06-23 12:02 | Observation (INO) ==
[2019-06-23 12:33] LABS: Basophils % 0.4 %; Eosinophils # 0.2 K/mcL (0.0-0.6); Eosinophils % 1.6 %; Hematocrit 52.1 % (37.5-50.1); Hemoglobin 16.2 g/dL (12.9-16.9); Immature Granulocytes % 0.4 % (0-4); Lymphocytes # 1.7 K/mcL (0.6-4.6); Lymphocytes % 14.9 %; Mean Corpuscular HGB Conc 31.1 g/dL (31.6-35.5); Mean Corpuscular Hemoglobin 24.3 pg (28.0-33.3); Mean Corpuscular Volume 78.2 fL (83.0-100.0); Mean Platelet Volume 10.2 fL (9.4-12.4); Monocytes # 0.8 K/mcL (0.0-1.3); Monocytes % 7.1 %; Neutrophils # 8.5 K/mcL (1.6-8.9); Platelet Count 361 K/mcL (140-400); Red Blood Count 6.66 M/mcL (4.19-5.50); Red Cell Distribution Width 18.2 % (11.5-14.5); Segmented Neutrophils % 75.6 %; White Blood Count 11.2 K/mcL (4.3-11.1)
[2019-06-23 12:36] LABS: INR 1.1; Prothrombin Time 12.7 Seconds (9.4-12.1)
[2019-06-23 12:39] LABS: Activated Partial Thrombo Time 31.6 Seconds (26.0-36.0)
[2019-06-23 12:54] LABS: BUN/Creatinine Ratio 16 (6-26); Blood Urea Nitrogen 17 mg/dL (6-20); Calcium 9.3 mg/dL (8.6-10.3); Carbon Dioxide 23 mEq/L (23-29); Chloride 102 mEq/L (98-107); Glucose 113 mg/dL (70-105); Osmolality,Calculated 284 (280-300); Potassium 4.1 mEq/L (3.5-5.1); Sodium 136 mEq/L (136-145); Troponin I < 0.03 ng/mL (< 0.04); eGFR For African Americans > 60 (> 60); eGFR For Non-African Americans > 60 (> 60)
[2019-06-23 13:07] LABS: Thyroid Stimulating Hormone 1.833 mcIU/mL (0.340-5.600)
[2019-06-23] MEDS ORDERED: Naloxone 0.4 MG/ML INJ IVP PRN (13:51)
[2019-06-23] MEDS: Metoprolol XL (24 HR) Succ 25 MG TAB.ER.24H PO SCH (21:19)
[2019-06-23] MEDS: Apixaban 5 MG TABLET PO SCH (21:19)
[2019-06-24] MEDS: Metoprolol XL (24 HR) Succ 25 MG TAB.ER.24H PO SCH ×2 (07:34→22:41)
[2019-06-24] MEDS: Apixaban 5 MG TABLET PO SCH ×2 (07:34→22:41)
[2019-06-24] MEDS ORDERED: Metoprolol XL (24 HR) Succ 25 MG TAB.ER.24H PO SCH ×2 (09:00→21:00)
[2019-06-25] MEDS: Metoprolol XL (24 HR) Succ 25 MG TAB.ER.24H PO SCH (08:01)
[2019-06-25] MEDS: Apixaban 5 MG TABLET PO SCH (08:01)
[2019-06-25 10:38] VITALS: BP 114/59
== END 2019-06-25 12:33 | disposition home or self-care (01) ==
LOC: 2ANU 12:02 → EMEROOARM 12:02 → SUATTDRO 13:46 → 2ANU 14:05
PROVIDERS: ADMIT Internal Medicine; ATTEND Pharmacist

== ENCOUNTER 2019-07-24 12:25 | Observation (INO) ==
[2019-07-24 13:53] LABS: Basophils # 0.1 K/mcL (0.0-0.2); Basophils % 0.4 %; Eosinophils # 0.3 K/mcL (0.0-0.6); Eosinophils % 2.1 %; Hematocrit 52.3 % (37.5-50.1); Hemoglobin 16.2 g/dL (12.9-16.9); Immature Granulocytes % 0.3 % (0-4); Lymphocytes # 1.7 K/mcL (0.6-4.6); Lymphocytes % 14.3 %; Mean Corpuscular Hemoglobin 24.8 pg (28.0-33.3); Mean Corpuscular Volume 80.1 fL (83.0-100.0); Mean Platelet Volume 9.7 fL (9.4-12.4); Monocytes # 0.8 K/mcL (0.0-1.3); Monocytes % 6.6 %; Neutrophils # 9.3 K/mcL (1.6-8.9); Platelet Count 283 K/mcL (140-400); Red Blood Count 6.53 M/mcL (4.19-5.50); Red Cell Distribution Width 19.2 % (11.5-14.5); Segmented Neutrophils % 76.3 %; White Blood Count 12.2 K/mcL (4.3-11.1)
[2019-07-24 13:57] LABS: INR 1.1
[2019-07-24 14:15] LABS: BUN/Creatinine Ratio 18 (6-26); Blood Urea Nitrogen 16 mg/dL (6-20); Calcium 9.3 mg/dL (8.6-10.3); Carbon Dioxide 23 mEq/L (23-29); Chloride 102 mEq/L (98-107); Glucose 113 mg/dL (70-105); Osmolality,Calculated 286 (280-300); Potassium 3.6 mEq/L (3.5-5.1); Sodium 137 mEq/L (136-145); Troponin I < 0.03 ng/mL (< 0.04); eGFR For African Americans > 60 (> 60); eGFR For Non-African Americans > 60 (> 60)
[2019-07-24] MEDS ORDERED: Ondansetron 4 MG/2 ML VIAL IVP PRN (15:59)
[2019-07-24] MEDS ORDERED: Acetaminophen 325 MG TABLET PO PRN (15:59)
[2019-07-24] MEDS ORDERED: Furosemide 20 MG/2 ML VIAL IVP ONE (16:02)
[2019-07-24] MEDS: Apixaban 5 MG TABLET PO SCH (22:34)
[2019-07-24] MEDS: Metoprolol XL (24 HR) Succ 50 MG TAB.ER.24H PO SCH (22:34)
[2019-07-25 05:53] LABS: BUN/Creatinine Ratio 21 (6-26); Blood Urea Nitrogen 16 mg/dL (6-20); Calcium 8.9 mg/dL (8.6-10.3); Carbon Dioxide 26 mEq/L (23-29); Chloride 102 mEq/L (98-107); Glucose 100 mg/dL (70-105); Magnesium 1.9 mg/dL (1.6-2.6); Osmolality,Calculated 283 (280-300); Potassium 3.6 mEq/L (3.5-5.1); Sodium 136 mEq/L (136-145); eGFR For African Americans > 60 (> 60); eGFR For Non-African Americans > 60 (> 60)
[2019-07-25] MEDS ORDERED: Furosemide 40 MG/4 ML VIAL IVP ONE (07:19)
[2019-07-25] MEDS: Apixaban 5 MG TABLET PO SCH ×2 (07:42→20:40)
[2019-07-25] MEDS: Metoprolol XL (24 HR) Succ 50 MG TAB.ER.24H PO SCH ×2 (07:42→20:40)
[2019-07-25] MEDS: Furosemide 40 MG TABLET PO SCH (18:21)
[2019-07-26] MEDS: Furosemide 40 MG TABLET PO SCH (07:12)
[2019-07-26] MEDS: Apixaban 5 MG TABLET PO SCH (07:12)
[2019-07-26] MEDS: Metoprolol XL (24 HR) Succ 50 MG TAB.ER.24H PO SCH (07:13)
[2019-07-26 08:25] VITALS: BP 126/76
== END 2019-07-26 10:46 | disposition home or self-care (01) ==
LOC: 2ANU 12:25 → EMEROOARM 12:25 → SUATTDRO 20:44 → 2ANU 21:43
PROVIDERS: ADMIT Internal Medicine; ATTEND Internal Medicine